=== PATIENT | female | born 1995 | race Caucasian/White ===

== ENCOUNTER → 2024-06-25 15:51 | Outpatient (REF) | payer OTHER, SELFPAY | LOC: PNTC 15:51 | PROVIDERS: ATTENDING PHYSICIAN Obstetrics & Gynecology | DX: O99.210 Obesity complicating pregnancy, unspecified trimester (principal) | CPT/HCPCS: 76805 ==

== ENCOUNTER → 2024-07-19 13:18 | Outpatient (REF) | payer OTHER, SELFPAY | LOC: PNTC 13:18 | PROVIDERS: ATTENDING PHYSICIAN Obstetrics & Gynecology | DX: O99.210 Obesity complicating pregnancy, unspecified trimester (principal) | CPT/HCPCS: 76811 ==

== ENCOUNTER → 2024-08-20 16:37 | Outpatient (REF) | payer OTHER, SELFPAY | LOC: PNTC 16:37 | PROVIDERS: ATTENDING PHYSICIAN Obstetrics & Gynecology | DX: O99.210 Obesity complicating pregnancy, unspecified trimester (principal) | CPT/HCPCS: 76816 ==

== ENCOUNTER → 2024-10-08 08:54 | Outpatient (REF) | payer OTHER, SELFPAY | LOC: PNTC 08:54 | PROVIDERS: ATTENDING PHYSICIAN Obstetrics & Gynecology | DX: O99.210 Obesity complicating pregnancy, unspecified trimester (principal) | CPT/HCPCS: 76816 ==

== ENCOUNTER 2024-11-25 20:06 | Inpatient (IN) | payer OTHER, SELFPAY ==
[2024-11-25 20:27] VITALS: BP 118/82; BMI 37.6
[2024-11-25] MEDS: LR 1000 IV (21:05)
[2024-11-25] MEDS: PENICILLIN 110 UNITS IV (21:10)
[2024-11-25 21:51] LABS: % Basophils 0.6 % (0-2); % Eosinophils 0.4 % (0-6); % Immature Granulocytes 0.6 % (0-0.5); % Lymphocytes 12.4 % (20.5-51.1); % Monocytes 8.2 % (1.7-9.3); % Neutrophils 77.8 % (42.2-75.2); Absolute Lymphocytes 0.9 10^3/uL (1.2-3.4); Absolute Monocytes 0.6 10^3/uL (0.1-0.6); Absolute Neutrophils 5.4 10^3/uL (1.4-6.5); Hematocrit 34.5 % (37.0-47.0); Mean Corp Hgb Conc. 31.9 g/dL (33.0-37.0); Mean Corpuscular Hgb 25.3 pg (27.0-31.0); Mean Corpuscular Volume 79.5 fL (81.0-99.0); Mean Platelet Volume 8.9 fL (7.4-10.4); Nucleated Red Blood Cells % 0 %; Platelet Count 235 10^3/uL (130-400); Red Blood Cell Count 4.34 10^6/uL (4.20-5.40); Red Cell Dist. Width 14.5 % (11.5-14.5); White Blood Cell Count 6.9 10^3/uL (4.8-10.8)
[2024-11-25] MEDS: TUMS CHEWABLE TABLET 400 MG PO (23:05)
[2024-11-25] MEDS: PITOCIN 30 UNITS/NSS 500 ML IV (23:30)
[2024-11-26] MEDS: PENICILLIN 55 UNITS IV (01:00)
[2024-11-26] MEDS: FENTANYL/BUPIVACAINE 100 EPIDURAL (01:05)
[2024-11-26] MEDS: SUBLIMAZE 100 MCG EPIDURAL (01:05)
[2024-11-26] MEDS: PITOCIN 30 UNITS/NSS 500 ML IV (04:27)
[2024-11-26] MEDS: MOTRIN 600 MG PO ×3 (09:21→21:26)
[2024-11-26] MEDS: PRENATAL PLUS 1 TABLET PO (12:56)
[2024-11-26] MEDS: TYLENOL 650 MG PO ×2 (15:26→21:26)
[2024-11-27 05:01] LABS: Hematocrit 31.1 % (37.0-47.0); Hemoglobin 9.6 g/dL (12.0-16.0)
[2024-11-27] MEDS: PRENATAL PLUS 1 TABLET PO (07:54)
[2024-11-27] MEDS: FEOSOL 325 MG PO (09:28)
[2024-11-27 15:54] LABS: Syphilis/T. pallidum Ab Reflex Negative (Negative)
== END 2024-11-27 14:09 | disposition home or self-care (01) | DRG 807 ==
LOC: LDRP 20:06
PROVIDERS: ADMITTING PHYSICIAN Obstetrics & Gynecology; ATTENDING PHYSICIAN Obstetrics & Gynecology
PROC: 10907ZC Drainage of Amniotic Fluid, Therapeutic from Products of Conception, Via Natural or Artificial Opening (ICD-10-PCS; 2024-11-26)
PROC: 4A1HXCZ Monitoring of Products of Conception, Cardiac Rate, External Approach (ICD-10-PCS; 2024-11-26)
PROC: 10E0XZZ Delivery of Products of Conception, External Approach (ICD-10-PCS; 2024-11-26)
DX: O99.824 Streptococcus B carrier state complicating childbirth (principal); Z37.0 Single live birth; O90.81 Anemia of the puerperium; Z3A.39 39 weeks gestation of pregnancy
CPT/HCPCS: 36415; 85014; 85018; 85025; 86780; 86850; 86900; 86901